=== PATIENT | female | born 1990 | race Caucasian/White ===

== ENCOUNTER 2017-01-06 16:00 | Outpatient (CLI) | payer OTHER ==
[~2017-01-06] VITALS: Ht 157.5 cm; Wt 63.9 kg
[2017-01-06 16:20] VITALS: BP 116/56; PULSE 61; RESP 16; Ht 157.5 cm; Wt 63.9 kg
--- NOTE | 2017-01-06 16:29 | PN ---
Date/Time of Note Date/Time of Note DATE: 01/06/17 TIME: 16:12 Outpatient Progress Note Chief Complaint Dog bite/anxiety/depression HPI Dog bite/patient was bitten by a neighbor dog, left hand injury, patient still has swelling, no fever or chill, no bleeding or discharge, slight tenderness, reduce with the pain medication, Anxiety/patient anxious and nervous, on medication, depression/history of depression, on medication, no suicidal idea, Review of Systems Const: No Fever, no chills, no Wt. loss, no Fatigue, normal appetite, no diaphoresis. Eyes: No pain, no discharge, no redness, no visual change, no foreign body. ENT: No pain, no bleeding, no congestion, no sore throat, no dysphagia, no discharge or rhinitis. Lymph: No adenopathy, no tender nodes, no lymphedema. Resp: No SOB, no cough, no sputum, no wheezing, no chest pain. CV: No chest pain, no palpitaions, no RAYMOND, no PND, no edema. GI: Normal appetite, no pain, no nausea, no vomiting, no diarrhea, no blood, no constipation. : No frequency, no urgency, no dysuria, no hematuria, no flank pain, no discharge, no bleeding. Musc: No bone/joint pain, no back pain, no neck pain, no knee pain, no restricted ROM. Skin: No rash, no skin lesions, no erythema, no laceration, no bruising, no pruritus. Left and patient has a dog bite, multiple sites injury, slight swelling, and tenderness, no bleeding or discharge, Neuro: No BRISENO, no dizziness, no syncope, no seizure, no focal-weakness. Endo: No polyuria, no polydypsia, no dry-skin, no temp-intolerance. Psych: No hallucinations, no depression, no anxiety, no suicidal ideation. Ext: No edema, no pain, no ulcer, no weakness Physical Exam General Appearance: A 26 year-old female who appears well-developed, well- nourished, in no acute distress. HEENT: Head normocephalic, atraumatic. Pupils equal, round, reactive to light and accommodate. Sclerae are no jaundice. Nasal turbinates pink without erythema or nasal discharge. Mucous membranes pink and moist without lesions. Oropharynx clear without any exudate or discharge. NECK: Supple. Trachea midline, No thyromegaly, No cervical lymphadenopathy, No mass, No carotid bruits, No JVD, Carotid pulses 2+ bilaterally. PULMONARY: Clear to auscultaion bilaterally, No retractions, Chest expansion symmetric bilaterally, no rales, no ronchi, no dulness on percussion. CARDIAC: Normal SI and S2, Regular rate and rythm, no murmur, gallop, or rub. GASTROINTESTINAL: Abdomen is soft, non-tender, Non Rigid, No distention, Positive bowel sounds x4 quadrants, Liver normal. SKIN: Warm, dry, no rash, no bruise, no echmosis. Patient has dogbite bishop, tenderness, swelling, no bleeding or discharge, EXTREMITIES: Bilateral lower extremities normal, no edema, no phlabitus, pulse palpable, no contracture. MUSCULOSKELETAL: Spine Normal, Non-tender, Normal range of motion, No swelling, no deformity, no clubbing, or cyanosis, the patient has no edema to bilateral lower extremities, dorsalis pedis pulses palpable bilaterally. NEUROLOGIC: The patient is awake, alert, oriented, responding to yes/no questions appropriately, moving all extremities, cranial nerve intact, normal strenght, normal power, normal coordination, normal gait. PMH Depression and anxiety, Social Hx No smoking no drinking at present, patient used to smoke and drink, patient used to use marijuana, patient has not done anything recently, Family Hx Noncontributory Assessment/Plan Impression Dogbite/anxiety/depression Plan Patient has IV Zosyn, continue IV antibiotic, Patient still has swelling on the left hand, has slight discomfort, no redness or bleeding or discharge, will monitor closely for cellulitis and abscess, improving gradually, Patient encouraged to follow with the primary care physician, Patient will need CBC Patient If any problem to call us or all the ER, PENG NASSAR MD Jan 06, 2017 16:23
[2017-01-06] MEDS ORDERED: CARB200T70 PO (16:36)
[2017-01-06] MEDS ORDERED: ZIPR40CA2 PO (16:36)
== END 2017-01-06 17:00 | disposition home or self-care (01) ==
LOC: DCC 16:00
PROVIDERS: ATTEND Internal Medicine
DX: F41.9 Anxiety disorder, unspecified (principal); F32.9 Major depressive disorder, single episode, unspecified; S69.92XD Unspecified injury of left wrist, hand and finger(s), subsequent encounter; W54.0XXD Bitten by dog, subsequent encounter
CPT/HCPCS: G0463

== ENCOUNTER 2017-01-21 11:01 | Outpatient (CLI) | payer OTHER ==
[~2017-01-21] VITALS: Ht 157.5 cm; Wt 61.8 kg
[~2017-01-21 11:01] MED LIST: CARB200T70 PO; ZIPR40CA2 PO
[2017-01-21 11:08] VITALS: BP 113/60; PULSE 59; RESP 18; Ht 157.5 cm; Wt 61.8 kg
--- NOTE | 2017-01-21 11:31 | PN ---
Date/Time of Note Date/Time of Note DATE: 01/21/17 TIME: 11:20 Outpatient Progress Note Chief Complaint Dog bite/anemia/anxiety/depression HPI Dog bite/patient has dog bite on her left hand, patient still has slight discomfort, patient has a left middle finger swelling, minimal, able to move and able to make a fist, Anemia/no hematemesis or melena, no bruises, ecchymosis, no bleeding, Anxiety/patient anxious and nervous, Depression/history of depression, no suicidal, Review of Systems Const: No Fever, no chills, no Wt. loss, no Fatigue, normal appetite, no diaphoresis. Eyes: No pain, no discharge, no redness, no visual change, no foreign body. ENT: No pain, no bleeding, no congestion, no sore throat, no dysphagia, no discharge or rhinitis. Lymph: No adenopathy, no tender nodes, no lymphedema. Resp: No SOB, no cough, no sputum, no wheezing, no chest pain. CV: No chest pain, no palpitaions, no RAYMOND, no PND, no edema. GI: Normal appetite, no pain, no nausea, no vomiting, no diarrhea, no blood, no constipation. : No frequency, no urgency, no dysuria, no hematuria, no flank pain, no discharge, no bleeding. Musc: no back pain, no neck pain, no knee pain, no restricted ROM. Skin: No rash, no skin lesions, no erythema, no laceration, no bruising, no pruritus. Neuro: No BRISENO, no dizziness, no syncope, no seizure, no focal-weakness. Endo: No polyuria, no polydypsia, no dry-skin, no temp-intolerance. Psych: No hallucinations, no depression, no anxiety, no suicidal ideation. Ext: No edema, no pain, no ulcer, no weakness. Left hand middle finger swelling , minimal, able to make a fist, no discomfort, no redness, no bleeding, no discharge, Patient has right upper extremity PICC line, Physical Exam Vital Signs Date Time Temp Pulse Resp B/P Pulse Ox O2 Delivery O2 Flow Rate FiO2 01/21/17 11:08 98.2 59 18 113/60 99 Room Air General Appearance: A 26 year-old female who appears well-developed, well- nourished, in no acute distress. HEENT: Head normocephalic, atraumatic. Pupils equal, round, reactive to light and accommodate. Sclerae are no jaundice. Nasal turbinates pink without erythema or nasal discharge. Mucous membranes pink and moist without lesions. Oropharynx clear without any exudate or discharge. NECK: Supple. Trachea midline, No thyromegaly, No cervical lymphadenopathy, No mass, No carotid bruits, No JVD, Carotid pulses 2+ bilaterally. PULMONARY: Clear to auscultaion bilaterally, No retractions, Chest expansion symmetric bilaterally, no rales, no ronchi, no dulness on percussion. CARDIAC: Normal SI and S2, Regular rate and rythm, no murmur, gallop, or rub. GASTROINTESTINAL: Abdomen is soft, non-tender, Non Rigid, No distention, Positive bowel sounds x4 quadrants, Liver normal. SKIN: Warm, dry, no rash, no bruise, no echmosis, no laceration, no ecchymosis, no bruises, no bleeding, no redness, no pus at the bite site, EXTREMITIES: Bilateral lower extremities normal, no edema, no phlabitus, pulse palpable, no contracture. Left middle finger slight swelling, no pain, right upper axillary PICC line, MUSCULOSKELETAL: Spine Normal, Non-tender, Normal range of motion, No swelling, no deformity, no clubbing, or cyanosis, the patient has no edema to bilateral lower extremities, dorsalis pedis pulses palpable bilaterally. NEUROLOGIC: The patient is awake, alert, oriented, responding to yes/no questions appropriately, moving all extremities, cranial nerve intact, normal strenght, normal power, normal coordination, normal gait. Allergies Coded Allergies: No Known Drug Allergies (Verified Allergy, Unknown, 01/06/17) PMH No change Social Hx No change Family Hx No change Assessment/Plan Impression Dog bite/anemia/anxiety/depression Plan Patient is antibiotic 3 days ago, no fever or chill, patient for comfortable, no cellulitis, patient able to make a fist, without discomfort, We will remove the PICC line, monitor for bleeding, discussed with the patient, Patient to follow with the primary care physician, Ferrous sulfate 325 3 times a day #100 patient to follow with the primary care physician for workup of anemia, Medications Home Meds Reported Medications Ziprasidone* (Geodon*) 40 Mg Capsule, 40 MG PO BID, CAP 01/06/17 Carbamazepine* (Tegretol Xr*) 200 Mg Tab.sr.12h, 200 MG PO Q12, TAB.SA 01/06/17 PENG NASSAR MD Jan 21, 2017 11:31
== END 2017-01-21 16:40 | disposition home or self-care (01) ==
LOC: DCC 11:01
PROVIDERS: ATTEND Internal Medicine
DX: S60.572D Other superficial bite of hand of left hand, subsequent encounter (principal); W54.0XXD Bitten by dog, subsequent encounter; D64.9 Anemia, unspecified; F41.9 Anxiety disorder, unspecified; F32.9 Major depressive disorder, single episode, unspecified
CPT/HCPCS: G0463